=== PATIENT | female | born 1990 | race African-American/Black ===

== ENCOUNTER 2017-03-24 22:43 | Emergency (ER) | payer MEDICAID ==
[~2017-03-24] VITALS: Ht 162.6 cm; Wt 91.0 kg
[2017-03-24 23:20] VITALS: BP 137/86
== END 2017-03-25 00:08 | disposition home or self-care (01) ==
LOC: ER 22:43
DX: J45.901 Unspecified asthma with (acute) exacerbation (principal); R03.0 Elevated blood-pressure reading, without diagnosis of hypertension; F17.210 Nicotine dependence, cigarettes, uncomplicated; F12.90 Cannabis use, unspecified, uncomplicated
CPT/HCPCS: 99283

== ENCOUNTER 2017-05-08 09:23 | Emergency (ER) | payer MEDICAID ==
[~2017-05-08] VITALS: Ht 162.6 cm; Wt 91.0 kg
[2017-05-08] MEDS ORDERED: IPRATROPIUM BROMIDE (0.02%) 0.5MG/2.5ML NEB HHN STA (09:56)
[2017-05-08] MEDS ORDERED: PREDNISONE 20MG TABLET PO STA (09:56)
[2017-05-08] MEDS ORDERED: ALBUTEROL (0.083%) 2.5MG/3ML NEB HHN STA (09:56)
[2017-05-08 12:19] VITALS: BP 111/57
== END 2017-05-08 12:39 | disposition home or self-care (01) ==
LOC: ER 09:35
DX: J45.901 Unspecified asthma with (acute) exacerbation (principal); F12.10 Cannabis abuse, uncomplicated; F17.210 Nicotine dependence, cigarettes, uncomplicated
CPT/HCPCS: 71010; 94644; 99285; J7512; J7611; 94640

== ENCOUNTER 2017-06-26 00:34 | Emergency (ER) | payer MEDICAID ==
[~2017-06-26] VITALS: Ht 162.6 cm; Wt 91.0 kg
[2017-06-26 00:45] VITALS: BP 119/71
== END 2017-06-26 03:00 | disposition left against medical advice (07) ==
LOC: ER 02:35
DX: R06.02 Shortness of breath (principal); Z53.21 Procedure and treatment not carried out due to patient leaving prior to being seen by health care provider

== ENCOUNTER 2017-06-26 06:26 | Emergency (ER) | payer MEDICAID ==
[~2017-06-26] VITALS: Ht 162.6 cm; Wt 91.0 kg
[2017-06-26] MEDS ORDERED: ALBUTEROL (0.083%) 2.5MG/3ML NEB HHN STA (07:42)
[2017-06-26] MEDS ORDERED: IPRATROPIUM BROMIDE (0.02%) 0.5MG/2.5ML NEB HHN STA (07:42)
[2017-06-26] MEDS ORDERED: PREDNISONE 20MG TABLET PO STA (07:42)
[2017-06-26 10:00] VITALS: BP 105/53
== END 2017-06-26 10:20 | disposition home or self-care (01) ==
LOC: ER 07:03
DX: J45.901 Unspecified asthma with (acute) exacerbation (principal)
CPT/HCPCS: 94640; 99283; J7512; J7611; Z7610

== ENCOUNTER 2017-07-20 22:18 | Emergency (ER) | payer MEDICAID ==
[~2017-07-20] VITALS: Ht 162.6 cm; Wt 91.0 kg
[2017-07-21 00:05] VITALS: BP 116/77
[2017-07-21] MEDS ORDERED: IPRATROPIUM BROMIDE (0.02%) 0.5MG/2.5ML NEB HHN STA (00:08)
[2017-07-21] MEDS ORDERED: ALBUTEROL (0.083%) 2.5MG/3ML NEB HHN STA (00:08)
[2017-07-21] MEDS ORDERED: PREDNISONE 20MG TABLET PO STA (00:08)
== END 2017-07-21 02:20 | disposition left against medical advice (07) ==
LOC: ER 22:18
DX: J45.901 Unspecified asthma with (acute) exacerbation (principal); R03.0 Elevated blood-pressure reading, without diagnosis of hypertension; F17.210 Nicotine dependence, cigarettes, uncomplicated; Z79.51 Long term (current) use of inhaled steroids
CPT/HCPCS: 99281; J7512; Z7610

== ENCOUNTER 2017-08-22 07:55 | Emergency (ER) | payer MEDICAID ==
[~2017-08-22] VITALS: Ht 162.6 cm; Wt 91.0 kg
[2017-08-22] MEDS ORDERED: METHYLPREDNISOLONE SOD SUCC 125 MG/2 ML VIAL IV STA (08:13)
[2017-08-22] MEDS ORDERED: IPRATROPIUM BROMIDE (0.02%) 0.5MG/2.5ML NEB HHN STA (08:13)
[2017-08-22] MEDS ORDERED: ALBUTEROL (0.083%) 2.5MG/3ML NEB HHN STA (08:13)
[2017-08-22 11:59] VITALS: BP 121/74
== END 2017-08-22 12:11 | disposition home or self-care (01) ==
LOC: ER 07:55
DX: J45.901 Unspecified asthma with (acute) exacerbation (principal); R11.2 Nausea with vomiting, unspecified
CPT/HCPCS: 71045; 94640; 96374; 99284; J2930; J7611; Z7610